=== PATIENT | female | born 1990 | race African-American/Black ===

== ENCOUNTER 2019-12-24 20:27 | Emergency (ER) | payer SELFPAY ==
[~2019-12-24] VITALS: Ht 175.3 cm; Wt 85.3 kg
[2019-12-24 20:41] VITALS: BP 110/72
[2019-12-24] MEDS ORDERED: Methocarbamol 750mg tab ORAL ONE (21:15)
--- NOTE | 2019-12-24 22:06 | Diagnostic Imaging Report ---
CT cervical spine History: Pain, trauma Technique: Axial noncontrast CT of cervical spine with coronal, sagittal reformatted images. Technique more: CTDI is 20.2 mGy and DLP is 493.9 mGy-cm. Technique more: One or more of the following dose reduction techniques were used: automated exposure control, adjustment of the mA and/or kV according to patient size, use of iterative reconstruction technique. Comparison: None FINDINGS: No fracture or subluxations are noted. The vertebral body heights, disc spaces and alignment are preserved. No prevertebral soft tissue swelling. Posterior fossa, cerebellar tonsils are normal. Normal Canal size. Lung apices are normal. Nonenlarged bilateral deep cervical chain lymph nodes. IMPRESSION: Normal CT scan of the cervical spine.
--- NOTE | 2019-12-24 22:18 | Diagnostic Imaging Report ---
CT chest abdomen pelvis without contrast History: Pain, trauma Technique: Axial noncontrast CT of the chest abdomen pelvis with coronal, sagittal reformatted images. Technique more: CTDI is 6.6 mGy and DLP is 479.1 mGy-cm. Technique more: One or more of the following dose reduction techniques were used: automated exposure control, adjustment of the mA and/or kV according to patient size, use of iterative reconstruction technique. Findings: Chest: Soft tissues: Thoracic inlet, bilateral axilla are unremarkable. Small amount of residual thymic soft tissue is seen. Negative for any significant mediastinal lymphadenopathy. Vascular: Heart and pericardium are normal. Aorta, pulmonary artery with normal caliber. Lungs: Negative for lung contusion, pleural effusion or pneumothorax. Negative for any significant or suspicious lung nodule. Bones: Negative for fracture Body wall: Streaky changes in the right gluteal soft tissue may represent contusion or changes from possible injections. Liver: Normal Gallbladder: Slightly contracted Spleen: Normal Pancreas: Normal Kidneys: Normal Bowel and mesentery: Normal. Negative for free fluid. Aorta: Normal Lymph nodes: No enlarged lymphadenopathy. Pelvis: Lobulated slightly enlarged uterus with probable right fundal 3.6 cm partially exophytic fibroid. Negative for pelvic free fluid. Partially distended urinary bladder. Impression: 1. No acute chest abdomen or pelvic finding. 2. Fibroid uterus.
--- NOTE | 2019-12-24 22:26 | Emergency Room Report ---
History of Present Illness General Chief Complaint: Multiple Trauma/Fall Source: Patient Present Illness HPI 29-year-old female with no significant past medical history here status post multiple trauma. Patient reports that she fell 2 nights ago on the right side of body with ecchymosis noted on right buttocks. Rates the pain 3 out of 10 without radiation. Denies any urinary bowel incontinence, denies any saddle paresthesia. Also complains of 3 out of 10 neck pain however has range of motion. Denies any tingling numbness. Denies any head contusion, loss of consciousness. Denies any chest pain, shortness of breath, abdominal pain. Still complains of minimal burning sensation over her ribs and abdomen. No signs of blunt trauma noted. Denies . Has taken Advil with minimal relief. Patient is neurovascularly intact. Has full strength of all extremities. 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 COVID-19 Screening: Negative COVID-19 COVID-19 Testing Source: [facility] Patient History Past Medical History: unable to obtain Past Surgical History: none Pertinent Family History: none Last Menstrual Period: SUNDAY Now: No : 0 Para: 0 Immunizations: UTD Reviewed Nursing Documentation: PMH: Agreed; PSxH: Agreed Nursing Documentation-PMH Past Medical History: No Stated History Review of Systems All Other Systems: negative except mentioned in HPI Physical Exam Vital Signs Date Time Temp Pulse Resp B/P (MAP) Pulse Ox O2 Delivery O2 Flow Rate FiO2 12/24/19 20:41 99.7 111 20 110/72 (85) 99 Room Air Sp02 EP Interpretation: reviewed, normal General Appearance: normal inspection, alert, no apparent distress, GCS 15 Head: normocephalic, atraumatic Eyes: normal eye exam, PERRL, EOMI, lids + conjunctiva normal, no hyphema, no racoon eyes ENT: normal ENT inspection, TMs + canals normal, oropharynx normal, no mendosa signs Neck: trach midline, no bony tend, full range of motion without pain Respiratory: effort normal, no retractions, clear to auscultation, chest symmetrical, palpation of chest normal, speaking in full sentences Cardiovascular: regular rate, rhythm, no JVD Cardiovascular #2: 2+ carotid (R), 2+ carotid (L), 2+ radial (R), 2+ radial (L) , 2+ femoral (R), 2+ femoral (L), 2+ dorsalis pedis (R), 2+ dorsalis pedis (L) Gastrointestinal: normal inspection, non-tender, non-distended, no rebound/ guarding, normal bowel sounds Musculoskeletal: normal ROM, non-tender, back normal Skin: no rash, no lacerations, normal palpation Lymphatic: normal inspection Neurologic: oriented x3, sensory intact, motor strength/tone normal, normal speech Psychiatric: judgment & insight normal Medical Decision Making PA Attestation All my diagnosis and treatment plans were reviewed ad discussed with my supervising physician Dr. Brady Diagnostic Impression: Primary Impression: Pelvic contusion Additional Impressions: Cervical strain Uterine fibroid ER Course 29-year-old female with no significant past medical history here status post multiple trauma. Patient reports that she fell 2 nights ago on the right side of body with ecchymosis noted on right buttocks. Rates the pain 3 out of 10 without radiation. Denies any urinary bowel incontinence, denies any saddle paresthesia. Also complains of 3 out of 10 neck pain however has range of motion. Denies any tingling numbness. Denies any head contusion, loss of consciousness. Denies any chest pain, shortness of breath, abdominal pain. Still complains of minimal burning sensation over her ribs and abdomen. No signs of blunt trauma noted. Denies . Has taken Advil with minimal relief. Patient is neurovascularly intact. Has full strength of all extremities. Ddx considered but are not limited to: Pelvic contusion versus fracture versus sprain versus strain, cervical strain versus sprain versus fracture Vital signs: are WNL, pt. is afebrile H&PE are most consistent with: Pelvic contusion, cervical strain, incidental finding of fibroid uterus ORDERS: No lumbar CT needed patient for range of motion denies any urinary bowel incontinence and saddle paresthesia CT chest abdomen pelvis noncontrast, C -spine CT no contrast, ibuprofen, Robaxin, lidocaine patch ER intervention: Motrin, Robaxin. Patient did not want any IM or IV medication DISCHARGE: At this time pt. is stable for d/c to home. Will provide printed patient care instructions, and any necessary prescriptions. Care plan and follow up instructions have been discussed with the patient prior to discharge. Patient take medication as directed, follow-up with your primary care provider or contract specialist, if worsening symptoms return to the emergency room Patient was evaluated in the context of the global COVID-19 pandemic, which necessitated consideration that the patient might be at risk for infection with the SARS-COV-2 virus that causes COVID-19. Institutional protocols and algorithms that pertain to the evaluation of patients at risk for COVID-19 are in a state of rapid change based on information relieved by multiple regulatory bodies including the CDC and the federal and state organizations. These policies and algorithms were followed during the patient's care in the ED. CT/MRI/US Diagnostic Results CT/MRI/US Diagnostic Results #1: Imaging Test Ordered: CT chest abdomen pelvis no contrast Impression Findings: Chest: Soft tissues: Thoracic inlet, bilateral axilla are unremarkable. Small amount of residual thymic soft tissue is seen. Negative for any significant mediastinal lymphadenopathy. Vascular: Heart and pericardium are normal. Aorta, pulmonary artery with normal caliber. Lungs: Negative for lung contusion, pleural effusion or pneumothorax. Negative for any significant or suspicious lung nodule. Bones: Negative for fracture Body wall: Streaky changes in the right gluteal soft tissue may represent contusion or changes from possible injections. Liver: Normal Gallbladder: Slightly contracted Spleen: Normal Pancreas: Normal Kidneys: Normal Bowel and mesentery: Normal. Negative for free fluid. Aorta: Normal Lymph nodes: No enlarged lymphadenopathy. Pelvis: Lobulated slightly enlarged uterus with probable right fundal 3.6 cm partially exophytic fibroid. Negative for pelvic free fluid. Partially distended urinary bladder. Impression: 1. No acute chest abdomen or pelvic finding. 2. Fibroid uterus. CT/MRI/US Diagnostic Results #2: Imaging Test Ordered: CT C-spine no contrast Impression History: Pain, trauma Technique: Axial noncontrast CT of cervical spine with coronal, sagittal reformatted images. Technique more: CTDI is 20.2 mGy and DLP is 493.9 mGy-cm. Technique more: One or more of the following dose reduction techniques were used : automated exposure control, adjustment of the mA and/or kV according to patient size, use of iterative reconstruction technique. Comparison: None FINDINGS: No fracture or subluxations are noted. The vertebral body heights, disc spaces and alignment are preserved. No prevertebral soft tissue swelling. Posterior fossa, cerebellar tonsils are normal. Normal Canal size. Lung apices are normal. Nonenlarged bilateral deep cervical chain lymph nodes. IMPRESSION: Normal CT scan of the cervical spine. Last Vital Signs Date Time Temp Pulse Resp B/P (MAP) Pulse Ox O2 Delivery O2 Flow Rate FiO2 12/24/19 21:31 99.6 12/24/19 20:41 87 20 110/72 99 Room Air Disposition: HOME, SELF-CARE Condition: Stable Referrals: NON PHYSICIAN (PCP) Patient Instructions: Cervical Strain and Sprain With Rehab-SportsMed, Contusion Additional Instructions: Patient take medication as directed, follow-up primary care provider contract specialist, if worsening symptoms return to the emergency room Carolina Butler Dec 24, 2019 22:26
[2019-12-24] MEDS ORDERED: ROBAXIN-500MG ORAL (22:27)
[2019-12-24] MEDS ORDERED: IBUPROFEN600 M1 ORAL (22:27)
[2019-12-24] MEDS ORDERED: LIDODERM700 M1 TOPIC (22:27)
[2019-12-24 22:30] VITALS: BP 110/72
== END 2019-12-24 22:30 | disposition home or self-care (01) ==
LOC: EMR 21:55
DX: S16.1XXA Strain of muscle, fascia and tendon at neck level, initial encounter (principal); S30.0XXA Contusion of lower back and pelvis, initial encounter; D25.9 Leiomyoma of uterus, unspecified; W19.XXXA Unspecified fall, initial encounter; Y92.9 Unspecified place or not applicable
CPT/HCPCS: 71250; 72125; 74176; 99284